=== PATIENT | female | born 1960 | race Asian ===

== ENCOUNTER 2016-06-15 11:58 | Outpatient (CLI) | payer BC, OTHER ==
[~2016-06-15 11:58] MED LIST: CEPH500C20 PO; CRESTOR20 MG PO; ENBREL25 MG SC; FURO40TA93 PO; HYDR200T3 PO; LABETALOL300 MG OR; LEFLUNOMIDE10 MG PO; LISI20TA11 PO; LORTAB 10/5001 EACH PO; NIFE30TA PO; NIFEDIAC CC90 MG OR; WARF10TA5 PO
== END 2016-06-15 19:08 | disposition home or self-care (01) ==
LOC: LABW 11:58
DX: I34.8 Other nonrheumatic mitral valve disorders (principal); I35.8 Other nonrheumatic aortic valve disorders
CPT/HCPCS: 36415; 85610

== ENCOUNTER 2016-06-24 13:25 | Outpatient (CLI) | payer BC, OTHER | END 2016-06-24 14:25 | disposition home or self-care (01) | LOC: LABW 13:25 | DX: I34.8 Other nonrheumatic mitral valve disorders (principal); I35.8 Other nonrheumatic aortic valve disorders | CPT/HCPCS: 36415; 85610 ==

== ENCOUNTER 2016-06-27 15:05 | Outpatient (CLI) | payer BC, OTHER ==
[2016-06-27 15:34] LABS: PLATELET COUNT 230 K/uL (152-353)
== END 2016-06-27 19:17 | disposition home or self-care (01) ==
LOC: LABW 15:05
PROVIDERS: Internal Medicine
DX: M79.1 Myalgia (principal)
CPT/HCPCS: 36415; 80076; 82550; 84443; 85027; 85651

== ENCOUNTER 2016-08-03 09:18 | Outpatient (CLI) | payer BC, OTHER | END 2016-08-03 19:05 | disposition home or self-care (01) | LOC: LABW 09:18 | DX: Z79.01 Long term (current) use of anticoagulants (principal); Z51.81 Encounter for therapeutic drug level monitoring | CPT/HCPCS: 36415; 85610 ==

== ENCOUNTER 2016-08-07 09:59 | Outpatient (CLI) | payer BC, OTHER | END 2016-08-07 20:00 | disposition home or self-care (01) | LOC: LABW 09:59 | DX: Z79.01 Long term (current) use of anticoagulants (principal); Z95.2 Presence of prosthetic heart valve; Z09 Encounter for follow-up examination after completed treatment for conditions other than malignant neoplasm | CPT/HCPCS: 36415; 85610 ==

== ENCOUNTER 2016-08-15 11:13 | Outpatient (CLI) | payer BC, OTHER | END 2016-08-15 13:00 | disposition home or self-care (01) | LOC: LABW 11:13 | DX: Z79.01 Long term (current) use of anticoagulants (principal); Z95.2 Presence of prosthetic heart valve; Z51.81 Encounter for therapeutic drug level monitoring | CPT/HCPCS: 36415; 85610 ==

== ENCOUNTER 2016-09-19 09:49 | Outpatient (CLI) | payer BC, OTHER | END 2016-09-19 12:00 | disposition home or self-care (01) | LOC: LABW 09:49 | PROVIDERS: Internal Medicine Rheumatology | DX: E78.4 Other hyperlipidemia (principal); Z09 Encounter for follow-up examination after completed treatment for conditions other than malignant neoplasm; M06.09 Rheumatoid arthritis without rheumatoid factor, multiple sites | CPT/HCPCS: 36415; 80061; 80076 ==

== ENCOUNTER 2016-10-26 11:53 | Inpatient (IN) | payer BC, OTHER ==
[~2016-10-26] VITALS: Ht 172.7 cm; Wt 85.1 kg
[2016-10-26 12:15] VITALS: BP 197/104; TEMP 97.8
[2016-10-26 13:41] LABS: PLATELET COUNT 206 K/uL (152-353)
[2016-10-26 13:57] LABS: POTASSIUM 3.7 mmol/L (3.6-5.2); SODIUM 142 mmol/L (136-145)
[2016-10-26 19:00] VITALS: BP 172/89; TEMP 98; Ht 172.7 cm; Wt 85.1 kg
--- NOTE | 2016-10-26 19:45 | NUR ---
10/26/16 1800 ADMITTED TO ROOM 1106 ABD PAIN DIFFERENTIAL CHRON'S ENTERTIS ISCHEMIA BOWEL UTI.20 GAUDGE TO LEFT AC INTACT.CC
[2016-10-26 20:00] VITALS: BP 130/67; TEMP 98.7
[2016-10-27] VITALS: BP 139/82; TEMP 98.5
[2016-10-27 04:00] VITALS: BP 152/85; TEMP 98.5
[2016-10-27] MEDS ORDERED: HYDR10TA47 PO (07:43)
[2016-10-27] MEDS ORDERED: CRESTOR20 MG PO (07:47)
[2016-10-27] MEDS ORDERED: WARF10TA5 PO (07:52)
[2016-10-27] MEDS ORDERED: WARF5TAB6 PO (07:57)
[2016-10-27] MEDS ORDERED: KLOR-CON M2020 MEQ OR (07:59)
[2016-10-27 08:00] VITALS: BP 148/84; TEMP 98.7
[2016-10-27] MEDS ORDERED: METO25TA4 OR (08:00)
--- NOTE | 2016-10-27 09:05 | NUR ---
10/26/16 AT 2238DR. KINA CALLED, UPDATED ON PT'S STATUS. NEW ORDER FOR PT, PTT, AND INR EVERY MORNING X 5 DAYS. T.O. R&V DR. CASTANON/JARVIS HERNANDEZ RN.
--- NOTE | 2016-10-27 09:06 | NUR ---
10/26/16 AT 2114DR. LORIE CALLED TO CHECK ON PT'S STATUS. NEW ORDER TO TYPE, CROSS, AND INFUSE 2 UNITS OF FRESH FROZEN PLASMA. T.O. R&V. DR. MELO/JARVIS HERNANDEZ RN.
[2016-10-27 10:42] LABS: PLATELET COUNT 185 K/uL (152-353)
[2016-10-27 11:02] LABS: PARTIAL THROMBOPLASTIN TIME 36.9 SECONDS (24.5-33.6)
[2016-10-27 11:08] LABS: POTASSIUM 3.5 mmol/L (3.6-5.2)
[2016-10-27 12:00] VITALS: BP 160/84; TEMP 98.1
[2016-10-27 16:00] VITALS: BP 173/77; TEMP 98.4
[2016-10-27 20:22] VITALS: BP 174/69; TEMP 98.5
[2016-10-28] VITALS: BP 181/84; TEMP 98.6
[2016-10-28 04:00] VITALS: BP 158/71; TEMP 98.5
[2016-10-28 05:09] LABS: PLATELET COUNT 169 K/uL (152-353)
[2016-10-28 05:23] LABS: POTASSIUM 3.9 mmol/L (3.6-5.2)
[2016-10-28 05:35] LABS: PARTIAL THROMBOPLASTIN TIME 29.3 SECONDS (24.5-33.6)
[2016-10-28 08:00] VITALS: BP 192/86; TEMP 98.3
[2016-10-28 12:00] VITALS: BP 197/87; TEMP 98.5
[2016-10-28 16:00] VITALS: BP 179/85; TEMP 98.4
[2016-10-28 20:00] VITALS: BP 193/90; TEMP 98.2
[2016-10-29] VITALS: BP 199/87; TEMP 97.7
[2016-10-29 04:00] VITALS: BP 186/84; TEMP 98.1
[2016-10-29 06:00] LABS: POTASSIUM 3.5 mmol/L (3.6-5.2); SODIUM 139 mmol/L (136-145)
[2016-10-29 06:09] LABS: PARTIAL THROMBOPLASTIN TIME 26.5 SECONDS (24.5-33.6); PLATELET COUNT 189 K/uL (152-353)
--- NOTE | 2016-10-29 07:55 | NUR ---
RESTING QUIETLY THIS AM, NO COMPLAINTS, IV FLUIDS INFUSING WITHOUT DIFFICULTY. TAKING PO FLUIDS.
[2016-10-29 08:00] VITALS: BP 182/90; TEMP 97.8
[2016-10-29 11:45] VITALS: BP 185/74; TEMP 98.5
--- NOTE | 2016-10-29 16:30 | NUR ---
D/C INSTRUCTIONS GIVEN TO PT. RX ATTACHED. L AC 18G D/C'D CATH TIP INTACT. OR SISTER TO COME TRANSPORT HOME.
== END 2016-10-29 16:45 | disposition home or self-care (01) | DRG 392 ==
LOC: ED 11:53 → MED/SURG 16:54
PROVIDERS: Internal Medicine; ADMIT Specialist
PROC: 30233K1 Transfusion of Nonautologous Frozen Plasma into Peripheral Vein, Percutaneous Approach (ICD-10-PCS; principal; 2016-10-27)
DX: K52.89 Other specified noninfective gastroenteritis and colitis (principal); R79.1 Abnormal coagulation profile; R79.89 Other specified abnormal findings of blood chemistry; Z95.4 Presence of other heart-valve replacement; I10 Essential (primary) hypertension; Z86.73 Personal history of transient ischemic attack (TIA), and cerebral infarction without residual deficits
CPT/HCPCS: 36415; 36430; 80048; 80053; 80307; 81000; 82150; 82272; 82550; 82553; 83605; 83690; 83735; 84100; 84484; 85027; 85610; 85651; 85730; 86039; 86140; 86900; 86901; 87086; 87088; 93005; 96366; 96367; 96374; 96375; 99284; G0479; J0360; J0744; J1170; J1200; J1650; J1885; J2175; J2405; J2930; J3490; P9017; Q9963

== ENCOUNTER 2016-11-13 09:07 | Outpatient (CLI) | payer BC, OTHER ==
[~2016-11-13 09:07] MED LIST changes: +HYDR10TA47 PO; +KLOR-CON M2020 MEQ OR; +METO25TA4 OR; +WARF5TAB6 PO
== END 2016-11-13 19:21 | disposition home or self-care (01) ==
LOC: LABW 09:07
DX: D68.8 Other specified coagulation defects (principal)
CPT/HCPCS: 36415; 85610

== ENCOUNTER 2016-11-30 10:06 | Outpatient (CLI) | payer BC, OTHER | END 2016-11-30 11:10 | disposition home or self-care (01) | LOC: LABW 10:06 | DX: Z79.01 Long term (current) use of anticoagulants (principal); Z95.2 Presence of prosthetic heart valve; Z51.81 Encounter for therapeutic drug level monitoring | CPT/HCPCS: 36415; 85610 ==

== ENCOUNTER 2017-01-11 12:02 | Outpatient (CLI) | payer BC, OTHER | END 2017-01-11 19:25 | disposition home or self-care (01) | LOC: LABW 12:02 | DX: M06.09 Rheumatoid arthritis without rheumatoid factor, multiple sites (principal); Z79.899 Other long term (current) drug therapy; Z51.81 Encounter for therapeutic drug level monitoring; Z79.01 Long term (current) use of anticoagulants; Z95.2 Presence of prosthetic heart valve | CPT/HCPCS: 36415; 82784; 85610; 85651; 86140 ==

== ENCOUNTER 2017-04-12 15:05 | Outpatient (CLI) | payer BC, OTHER | END 2017-04-12 22:41 | disposition home or self-care (01) | LOC: RAD 15:05 | DX: J40 Bronchitis, not specified as acute or chronic (principal) ==

== ENCOUNTER 2017-09-24 09:32 | Outpatient (CLI) | payer BC, OTHER | END 2017-09-24 22:35 | disposition home or self-care (01) | LOC: LABW 09:32 | PROVIDERS: Internal Medicine Cardiovascular Disease | DX: E78.4 Other hyperlipidemia (principal) | CPT/HCPCS: 36415; 80061; 80076 ==

== ENCOUNTER 2017-10-02 11:14 | Outpatient (CLI) | payer BC, OTHER | END 2017-10-02 21:54 | disposition home or self-care (01) | LOC: LABW 11:14 | DX: I34.9 Nonrheumatic mitral valve disorder, unspecified (principal); I35.9 Nonrheumatic aortic valve disorder, unspecified; Z79.01 Long term (current) use of anticoagulants; Z09 Encounter for follow-up examination after completed treatment for conditions other than malignant neoplasm | CPT/HCPCS: 36415; 85610 ==

== ENCOUNTER 2017-10-12 08:47 | Outpatient (CLI) | payer BC, OTHER | END 2017-10-12 19:07 | disposition home or self-care (01) | LOC: LABW 08:47 | DX: I34.8 Other nonrheumatic mitral valve disorders (principal); I35.8 Other nonrheumatic aortic valve disorders; Z79.01 Long term (current) use of anticoagulants; Z51.81 Encounter for therapeutic drug level monitoring | CPT/HCPCS: 36415; 85610 ==

== ENCOUNTER 2017-10-23 10:03 | Outpatient (CLI) | payer BC, OTHER | END 2017-10-23 23:46 | disposition home or self-care (01) | LOC: LABW 10:03 | DX: I34.9 Nonrheumatic mitral valve disorder, unspecified (principal); I35.9 Nonrheumatic aortic valve disorder, unspecified; Z79.01 Long term (current) use of anticoagulants; Z09 Encounter for follow-up examination after completed treatment for conditions other than malignant neoplasm | CPT/HCPCS: 36415; 85610 ==

== ENCOUNTER 2017-11-05 11:17 | Outpatient (CLI) | payer BC, OTHER | END 2017-11-05 22:01 | disposition home or self-care (01) | LOC: LABW 11:17 | DX: I34.8 Other nonrheumatic mitral valve disorders (principal); I35.8 Other nonrheumatic aortic valve disorders; Z79.01 Long term (current) use of anticoagulants; Z51.81 Encounter for therapeutic drug level monitoring | CPT/HCPCS: 36415; 85610 ==

== ENCOUNTER 2017-11-20 11:44 | Outpatient (CLI) | payer BC, OTHER | END 2017-11-20 20:01 | disposition home or self-care (01) | LOC: LABW 11:44 | DX: I34.9 Nonrheumatic mitral valve disorder, unspecified (principal); I35.9 Nonrheumatic aortic valve disorder, unspecified; Z79.01 Long term (current) use of anticoagulants; Z09 Encounter for follow-up examination after completed treatment for conditions other than malignant neoplasm | CPT/HCPCS: 36415; 85610 ==

== ENCOUNTER 2018-01-24 09:29 | Outpatient (CLI) | payer BC, OTHER | END 2018-01-24 20:07 | disposition home or self-care (01) | LOC: LABW 09:29 | DX: I34.9 Nonrheumatic mitral valve disorder, unspecified (principal); I35.9 Nonrheumatic aortic valve disorder, unspecified; Z09 Encounter for follow-up examination after completed treatment for conditions other than malignant neoplasm | CPT/HCPCS: 36415; 85610 ==

== ENCOUNTER 2018-02-19 16:10 | Emergency (ER) | payer BC, OTHER ==
[~2018-02-19] VITALS: Ht 172.7 cm; Wt 81.6 kg
[2018-02-19 17:22] LABS: PLATELET COUNT 187 K/uL (152-353)
[2018-02-19 17:27] LABS: POTASSIUM 3.8 mmol/L (3.6-5.2)
[2018-02-19 18:00] VITALS: TEMP 98.5
[2018-02-19 19:00] VITALS: BP 206/80
== END 2018-02-19 20:10 | disposition home or self-care (01) ==
LOC: ED 16:10
PROVIDERS: Family Medicine
DX: R07.89 Other chest pain (principal); R00.1 Bradycardia, unspecified
CPT/HCPCS: 36415; 80053; 82550; 84484; 85027; 93005; 96374; 96375; 99284; J2175; J2550

== ENCOUNTER 2018-03-07 09:42 | Outpatient (CLI) | payer BC, OTHER | END 2018-03-07 19:22 | disposition home or self-care (01) | LOC: LABW 09:42 | DX: I34.9 Nonrheumatic mitral valve disorder, unspecified (principal); I35.9 Nonrheumatic aortic valve disorder, unspecified; Z79.01 Long term (current) use of anticoagulants | CPT/HCPCS: 36415; 85610 ==

== ENCOUNTER 2018-04-18 15:32 | Outpatient (CLI) | payer BC, OTHER | END 2018-04-18 19:14 | disposition home or self-care (01) | LOC: LABW 15:32 | DX: I34.9 Nonrheumatic mitral valve disorder, unspecified (principal); I35.9 Nonrheumatic aortic valve disorder, unspecified; Z79.01 Long term (current) use of anticoagulants; Z09 Encounter for follow-up examination after completed treatment for conditions other than malignant neoplasm | CPT/HCPCS: 36415; 85610 ==

== ENCOUNTER 2018-05-06 14:13 | Outpatient (CLI) | payer BC, OTHER | END 2018-05-06 19:20 | disposition home or self-care (01) | LOC: LABW 14:13 | DX: I34.9 Nonrheumatic mitral valve disorder, unspecified (principal); I35.9 Nonrheumatic aortic valve disorder, unspecified; Z79.01 Long term (current) use of anticoagulants; Z09 Encounter for follow-up examination after completed treatment for conditions other than malignant neoplasm | CPT/HCPCS: 36415; 85610 ==

== ENCOUNTER 2018-05-31 10:28 | Outpatient (CLI) | payer BC, OTHER | END 2018-05-31 19:40 | disposition home or self-care (01) | LOC: LABW 10:28 | DX: I34.9 Nonrheumatic mitral valve disorder, unspecified (principal); I35.9 Nonrheumatic aortic valve disorder, unspecified; Z79.01 Long term (current) use of anticoagulants; Z09 Encounter for follow-up examination after completed treatment for conditions other than malignant neoplasm | CPT/HCPCS: 36415; 85610 ==

== ENCOUNTER 2018-07-30 10:28 | Outpatient (CLI) | payer BC, OTHER | END 2018-07-30 20:17 | disposition home or self-care (01) | LOC: LABW 10:28 | DX: I34.9 Nonrheumatic mitral valve disorder, unspecified (principal); I35.9 Nonrheumatic aortic valve disorder, unspecified; Z79.01 Long term (current) use of anticoagulants; Z09 Encounter for follow-up examination after completed treatment for conditions other than malignant neoplasm | CPT/HCPCS: 36415; 85610 ==

== ENCOUNTER 2018-08-02 11:08 | Outpatient (CLI) | payer BC, OTHER | END 2018-08-02 22:41 | disposition home or self-care (01) | LOC: LABW 11:08 | DX: I34.9 Nonrheumatic mitral valve disorder, unspecified (principal); I35.9 Nonrheumatic aortic valve disorder, unspecified; Z79.01 Long term (current) use of anticoagulants; Z09 Encounter for follow-up examination after completed treatment for conditions other than malignant neoplasm | CPT/HCPCS: 36415; 85610 ==

== ENCOUNTER 2018-08-09 09:49 | Outpatient (CLI) | payer BC, OTHER | END 2018-08-09 19:59 | disposition home or self-care (01) | LOC: LABW 09:49 | DX: I34.9 Nonrheumatic mitral valve disorder, unspecified (principal); I35.9 Nonrheumatic aortic valve disorder, unspecified; Z79.01 Long term (current) use of anticoagulants; Z09 Encounter for follow-up examination after completed treatment for conditions other than malignant neoplasm | CPT/HCPCS: 36415; 85610 ==

== ENCOUNTER 2018-08-19 10:50 | Outpatient (CLI) | payer BC, OTHER | END 2018-08-19 22:46 | disposition home or self-care (01) | LOC: LABW 10:50 | DX: I34.9 Nonrheumatic mitral valve disorder, unspecified (principal); I35.9 Nonrheumatic aortic valve disorder, unspecified; Z09 Encounter for follow-up examination after completed treatment for conditions other than malignant neoplasm | CPT/HCPCS: 36415; 85610 ==

== ENCOUNTER 2018-08-23 09:26 | Outpatient (CLI) | payer BC, OTHER | END 2018-08-23 19:36 | disposition home or self-care (01) | LOC: LABW 09:26 | DX: I34.9 Nonrheumatic mitral valve disorder, unspecified (principal); I35.9 Nonrheumatic aortic valve disorder, unspecified; Z79.01 Long term (current) use of anticoagulants; Z09 Encounter for follow-up examination after completed treatment for conditions other than malignant neoplasm | CPT/HCPCS: 36415; 85610 ==

== ENCOUNTER 2018-09-03 12:44 | Outpatient (CLI) | payer BC, OTHER | END 2018-09-03 20:32 | disposition home or self-care (01) | LOC: LABW 12:44 | DX: I34.9 Nonrheumatic mitral valve disorder, unspecified (principal); I35.9 Nonrheumatic aortic valve disorder, unspecified; Z79.01 Long term (current) use of anticoagulants; Z09 Encounter for follow-up examination after completed treatment for conditions other than malignant neoplasm | CPT/HCPCS: 36415; 85610 ==

== ENCOUNTER 2018-09-19 09:56 | Outpatient (CLI) | payer BC, OTHER | END 2018-09-19 19:42 | disposition home or self-care (01) | LOC: LABW 09:56 | DX: I34.9 Nonrheumatic mitral valve disorder, unspecified (principal); I35.9 Nonrheumatic aortic valve disorder, unspecified; Z79.01 Long term (current) use of anticoagulants; Z09 Encounter for follow-up examination after completed treatment for conditions other than malignant neoplasm | CPT/HCPCS: 36415; 85610 ==

== ENCOUNTER 2018-10-03 09:28 | Outpatient (CLI) | payer BC, OTHER | END 2018-10-03 19:51 | disposition home or self-care (01) | LOC: LABW 09:28 | DX: I34.9 Nonrheumatic mitral valve disorder, unspecified (principal); I35.9 Nonrheumatic aortic valve disorder, unspecified; Z09 Encounter for follow-up examination after completed treatment for conditions other than malignant neoplasm | CPT/HCPCS: 36415; 85610 ==

== ENCOUNTER 2018-10-18 09:29 | Outpatient (CLI) | payer BC, OTHER | END 2018-10-18 23:37 | disposition home or self-care (01) | LOC: LABW 09:29 | DX: Z09 Encounter for follow-up examination after completed treatment for conditions other than malignant neoplasm (principal); I34.9 Nonrheumatic mitral valve disorder, unspecified; I35.9 Nonrheumatic aortic valve disorder, unspecified; Z79.01 Long term (current) use of anticoagulants | CPT/HCPCS: 36415; 85610 ==

== ENCOUNTER 2018-11-01 09:51 | Outpatient (CLI) | payer BC, OTHER | END 2018-11-01 19:09 | disposition home or self-care (01) | LOC: LABW 09:51 | DX: I34.9 Nonrheumatic mitral valve disorder, unspecified (principal); I35.9 Nonrheumatic aortic valve disorder, unspecified; Z79.01 Long term (current) use of anticoagulants; Z09 Encounter for follow-up examination after completed treatment for conditions other than malignant neoplasm | CPT/HCPCS: 36415; 85610 ==

== ENCOUNTER 2018-11-27 09:23 | Outpatient (CLI) | payer BC, OTHER | END 2018-11-27 23:59 | LOC: LABW 09:23 | DX: I35.8 Other nonrheumatic aortic valve disorders (principal); I34.8 Other nonrheumatic mitral valve disorders; Z79.01 Long term (current) use of anticoagulants; Z09 Encounter for follow-up examination after completed treatment for conditions other than malignant neoplasm | CPT/HCPCS: 36415; 85610 ==

== ENCOUNTER 2018-12-20 09:18 | Outpatient (CLI) | payer OTHER, BC | END 2018-12-20 23:07 | disposition home or self-care (01) | LOC: LABW 09:18 | DX: I35.8 Other nonrheumatic aortic valve disorders (principal); Z79.01 Long term (current) use of anticoagulants | CPT/HCPCS: 36415; 85610 ==

== ENCOUNTER 2019-01-13 10:45 | Outpatient (CLI) | payer OTHER, BC | END 2019-01-13 22:05 | disposition home or self-care (01) | LOC: LABW 10:45 | DX: I35.8 Other nonrheumatic aortic valve disorders (principal); Z79.01 Long term (current) use of anticoagulants | CPT/HCPCS: 36415; 85610 ==

== ENCOUNTER 2019-02-18 13:05 | Outpatient (CLI) | payer OTHER, BC | END 2019-02-18 19:36 | disposition home or self-care (01) | LOC: LABW 13:05 | DX: Z79.01 Long term (current) use of anticoagulants (principal); I35.8 Other nonrheumatic aortic valve disorders | CPT/HCPCS: 36415; 85610 ==

== ENCOUNTER 2019-02-28 13:41 | Outpatient (CLI) | payer OTHER, BC | END 2019-02-28 19:28 | disposition home or self-care (01) | LOC: LABW 13:41 | DX: I35.8 Other nonrheumatic aortic valve disorders (principal); Z79.01 Long term (current) use of anticoagulants | CPT/HCPCS: 36415; 85610 ==

== ENCOUNTER 2019-03-21 10:10 | Outpatient (CLI) | payer OTHER, BC | END 2019-03-21 20:15 | disposition home or self-care (01) | LOC: LABW 10:10 | DX: I35.8 Other nonrheumatic aortic valve disorders (principal); Z79.01 Long term (current) use of anticoagulants | CPT/HCPCS: 36415; 85610 ==

== ENCOUNTER 2019-03-26 13:14 | Outpatient (CLI) | payer OTHER, BC | END 2019-03-26 19:36 | disposition home or self-care (01) | LOC: RAD 13:14 | DX: M50.120 Mid-cervical disc disorder, unspecified level (principal) ==

== ENCOUNTER 2019-04-12 12:48 | Emergency (ER) | payer OTHER, BC ==
[~2019-04-12] VITALS: Ht 172.7 cm; Wt 83.9 kg
[2019-04-12 13:10] VITALS: TEMP 98.7
[2019-04-12 13:17] LABS: PLATELET COUNT 227 K/uL (152-353)
[2019-04-12 13:24] LABS: POTASSIUM 3.6 mmol/L (3.6-5.2)
[2019-04-12 15:00] VITALS: BP 166/94
== END 2019-04-12 15:15 | disposition short-term general hospital (02) ==
LOC: ED 12:48
PROVIDERS: Emergency Medicine
DX: I21.4 Non-ST elevation (NSTEMI) myocardial infarction (principal)
CPT/HCPCS: 80053; 82550; 82553; 84484; 85027; 85379; 85610; 93005; 96372; 96374; 99285; J1644; J2270

== ENCOUNTER 2019-04-18 10:46 | Outpatient (CLI) | payer OTHER, BC | END 2019-04-18 16:00 | disposition home or self-care (01) | LOC: LABW 10:46 | DX: I35.8 Other nonrheumatic aortic valve disorders (principal); Z79.01 Long term (current) use of anticoagulants | CPT/HCPCS: 36415; 85610 ==

== ENCOUNTER 2019-04-24 14:07 | Outpatient (CLI) | payer OTHER, BC | END 2019-04-24 20:21 | disposition home or self-care (01) | LOC: LABW 14:07 | DX: I35.8 Other nonrheumatic aortic valve disorders (principal); Z79.01 Long term (current) use of anticoagulants | CPT/HCPCS: 36415; 85610 ==

== ENCOUNTER 2019-05-05 10:08 | Outpatient (CLI) | payer OTHER, BC | END 2019-05-05 19:31 | disposition home or self-care (01) | LOC: LABW 10:08 | PROVIDERS: Internal Medicine Cardiovascular Disease | DX: E78.49 Other hyperlipidemia (principal); I25.119 Atherosclerotic heart disease of native coronary artery with unspecified angina pectoris; Z95.2 Presence of prosthetic heart valve; I35.8 Other nonrheumatic aortic valve disorders; Z79.01 Long term (current) use of anticoagulants | CPT/HCPCS: 36415; 80061; 80076; 85610 ==

== ENCOUNTER 2019-05-26 10:13 | Emergency (ER) | payer OTHER, BC ==
[~2019-05-26] VITALS: Ht 172.7 cm; Wt 83.9 kg
[2019-05-26 10:13] VITALS: BP 176/84; TEMP 98.4
[2019-05-26 10:42] LABS: PLATELET COUNT 209 K/uL (152-353)
[2019-05-26 10:48] LABS: POTASSIUM 3.1 mmol/L (3.6-5.2)
[2019-05-26 11:05] LABS: PARTIAL THROMBOPLASTIN TIME 29.3 SECONDS (24.5-33.6)
[2019-05-26] MEDS ORDERED: ROSUVASTATIN CA40 MG PO (11:20)
[2019-05-26] MEDS ORDERED: NIFE60TA5 PO (11:21)
[2019-05-26] MEDS ORDERED: ZESTRIL40 MG PO (11:23)
== END 2019-05-26 19:17 | disposition short-term general hospital (02) ==
LOC: ED 10:13
PROVIDERS: Student in an Organized Health Care Education/Training Program
DX: I21.4 Non-ST elevation (NSTEMI) myocardial infarction (principal)
CPT/HCPCS: 36415; 80048; 83690; 83735; 83880; 84484; 85027; 85610; 85730; 93005; 96374; 96375; 96376; 99284; J2270; J2405

== ENCOUNTER 2019-06-02 11:09 | Outpatient (CLI) | payer OTHER, BC ==
[~2019-06-02 11:09] MED LIST changes: +NIFE60TA5 PO; +ROSUVASTATIN CA40 MG PO; +ZESTRIL40 MG PO
== END 2019-06-02 19:53 | disposition home or self-care (01) ==
LOC: LABW 11:09
DX: I35.8 Other nonrheumatic aortic valve disorders (principal); Z79.01 Long term (current) use of anticoagulants
CPT/HCPCS: 85610

== ENCOUNTER 2019-06-06 11:43 | Outpatient (CLI) | payer OTHER, BC | END 2019-06-06 19:11 | disposition home or self-care (01) | LOC: LABW 11:43 | DX: Z79.01 Long term (current) use of anticoagulants (principal); I35.8 Other nonrheumatic aortic valve disorders | CPT/HCPCS: 36415; 85610 ==

== ENCOUNTER 2019-06-09 10:10 | Outpatient (CLI) | payer OTHER, BC | END 2019-06-09 19:13 | disposition home or self-care (01) | LOC: LABW 10:10 | DX: I35.8 Other nonrheumatic aortic valve disorders (principal); Z79.01 Long term (current) use of anticoagulants | CPT/HCPCS: 36415; 85610 ==

== ENCOUNTER 2019-06-13 09:00 | Outpatient (CLI) | payer OTHER, BC | END 2019-06-13 22:45 | disposition home or self-care (01) | LOC: LABW 09:00 | DX: Z79.01 Long term (current) use of anticoagulants (principal); I35.8 Other nonrheumatic aortic valve disorders | CPT/HCPCS: 36415; 85610 ==

== ENCOUNTER 2019-06-19 10:48 | Outpatient (CLI) | payer OTHER, BC | END 2019-06-19 22:45 | disposition home or self-care (01) | LOC: LABW 10:48 | DX: Z79.01 Long term (current) use of anticoagulants (principal); I35.8 Other nonrheumatic aortic valve disorders | CPT/HCPCS: 36415; 85610 ==

== ENCOUNTER 2019-06-23 09:37 | Outpatient (CLI) | payer OTHER, BC | END 2019-06-23 23:05 | disposition home or self-care (01) | LOC: LABW 09:37 | DX: I35.8 Other nonrheumatic aortic valve disorders (principal); Z79.01 Long term (current) use of anticoagulants | CPT/HCPCS: 36415; 85610 ==

== ENCOUNTER 2019-06-30 12:09 | Outpatient (CLI) | payer OTHER, BC | END 2019-06-30 20:49 | disposition home or self-care (01) | LOC: LABW 12:09 | DX: I35.8 Other nonrheumatic aortic valve disorders (principal); Z79.01 Long term (current) use of anticoagulants | CPT/HCPCS: 36415; 85610 ==

== ENCOUNTER 2019-07-14 10:04 | Outpatient (CLI) | payer OTHER, BC | END 2019-07-14 19:15 | disposition home or self-care (01) | LOC: LABW 10:04 | DX: I35.8 Other nonrheumatic aortic valve disorders (principal); Z79.01 Long term (current) use of anticoagulants | CPT/HCPCS: 36415; 85610 ==

== ENCOUNTER 2019-07-28 09:26 | Outpatient (CLI) | payer OTHER, BC | END 2019-07-28 20:08 | disposition home or self-care (01) | LOC: LABW 09:26 | DX: I35.8 Other nonrheumatic aortic valve disorders (principal); Z79.01 Long term (current) use of anticoagulants | CPT/HCPCS: 36415; 85610 ==

== ENCOUNTER 2019-10-19 11:44 | Emergency (ER) | payer OTHER, BC ==
[2019-10-19] MEDS ORDERED: METO25TA2 PO (12:27)
[2019-10-19] MEDS ORDERED: FURO40TA93 PO (12:28)
[2019-10-19] MEDS ORDERED: POT CHLORIDE10 MEQ PO (12:28)
[2019-10-19] MEDS ORDERED: NITR0.4S2 SL (12:29)
[2019-10-19] MEDS ORDERED: ISOS30TA17 PO (12:30)
[2019-10-19] MEDS ORDERED: ASPIRIN 81 LOW81 MG PO (12:31)
== END 2019-11-29 ==
LOC: ED 11:44
DX: R42 Dizziness and giddiness (principal)
CPT/HCPCS: 99281; 99284

== ENCOUNTER 2019-10-19 11:51 | Emergency (ER) | payer OTHER, BC ==
[~2019-10-19] VITALS: Ht 172.7 cm; Wt 83.9 kg
[2019-10-19] MEDS ORDERED: METO25TA2 PO (12:27)
[2019-10-19] MEDS ORDERED: POT CHLORIDE10 MEQ PO (12:28)
[2019-10-19] MEDS ORDERED: FURO40TA93 PO (12:28)
[2019-10-19] MEDS ORDERED: NITR0.4S2 SL (12:29)
[2019-10-19] MEDS ORDERED: ISOS30TA17 PO (12:30)
[2019-10-19] MEDS ORDERED: ASPIRIN 81 LOW81 MG PO (12:31)
[2019-10-19 13:03] LABS: PLATELET COUNT 197 K/uL (152-353)
[2019-10-19 15:48] VITALS: BP 154/84; TEMP 98.5
== END 2019-10-19 15:49 | disposition home or self-care (01) ==
LOC: ED 11:51
PROVIDERS: Emergency Medicine
DX: G44.89 Other headache syndrome (principal); I10 Essential (primary) hypertension
CPT/HCPCS: 36415; 80053; 81000; 82550; 82553; 84484; 85027; 93005; 96365; 96375; 99284; Q9963

== ENCOUNTER 2019-10-21 09:14 | Outpatient (CLI) | payer OTHER, BC ==
[~2019-10-21 09:14] MED LIST changes: +ASPIRIN 81 LOW81 MG PO; +ISOS30TA17 PO; +METO25TA2 PO; +NITR0.4S2 SL; +POT CHLORIDE10 MEQ PO
== END 2019-10-21 20:35 | disposition home or self-care (01) ==
LOC: LABW 09:14
DX: D68.8 Other specified coagulation defects (principal)
CPT/HCPCS: 36415; 85610

== ENCOUNTER 2019-11-06 13:14 | Outpatient (CLI) | payer OTHER, BC | END 2019-11-06 19:33 | disposition home or self-care (01) | LOC: MRI 13:14 | DX: G45.8 Other transient cerebral ischemic attacks and related syndromes (principal) | CPT/HCPCS: A9576 ==

== ENCOUNTER 2019-11-28 12:41 | Emergency (ER) | payer OTHER, BC ==
[~2019-11-28] VITALS: Ht 172.7 cm; Wt 89.8 kg
[2019-11-28 13:08] VITALS: BP 118/74; TEMP 98.7
== END 2019-11-28 13:44 | disposition home or self-care (01) ==
LOC: ED 12:41
DX: R42 Dizziness and giddiness (principal)
CPT/HCPCS: 99281

== ENCOUNTER 2019-11-29 10:18 | Emergency (ER) | payer OTHER, BC ==
[~2019-11-29] VITALS: Ht 172.7 cm; Wt 89.8 kg
[2019-11-29 11:08] LABS: PLATELET COUNT 182 K/uL (152-353)
[2019-11-29 11:15] LABS: POTASSIUM 3.6 mmol/L (3.6-5.2)
[2019-11-29 12:33] VITALS: BP 130/80; TEMP 97.6
== END 2019-11-29 12:35 | disposition home or self-care (01) ==
LOC: ED 10:30
PROVIDERS: Emergency Medicine
DX: R42 Dizziness and giddiness (principal); Z79.899 Other long term (current) drug therapy; Z51.81 Encounter for therapeutic drug level monitoring
CPT/HCPCS: 80053; 81000; 85027; 87086; 87088; 93005; 99283

== ENCOUNTER 2020-01-07 14:15 | Outpatient (CLI) | payer OTHER, BC | END 2020-01-07 19:10 | disposition home or self-care (01) | LOC: LABW 14:15 | DX: I35.8 Other nonrheumatic aortic valve disorders (principal); Z79.01 Long term (current) use of anticoagulants | CPT/HCPCS: 36415; 85610 ==

== ENCOUNTER 2020-01-12 13:32 | Outpatient (CLI) | payer OTHER, BC | END 2020-01-12 23:47 | disposition home or self-care (01) | LOC: LABW 13:32 | DX: I35.8 Other nonrheumatic aortic valve disorders (principal); Z79.01 Long term (current) use of anticoagulants | CPT/HCPCS: 36415; 85610 ==

== ENCOUNTER 2020-02-04 10:53 | Emergency (ER) | payer OTHER, BC ==
[~2020-02-04] VITALS: Ht 172.7 cm; Wt 88.5 kg
[2020-02-04 11:24] LABS: PLATELET COUNT 203 K/uL (152-353)
[2020-02-04 11:28] LABS: POTASSIUM 3.5 mmol/L (3.6-5.2); SODIUM 141 mmol/L (136-145)
[2020-02-04 11:36] LABS: PARTIAL THROMBOPLASTIN TIME 29.5 SECONDS (24.5-33.6)
[2020-02-04 12:30] VITALS: BP 122/77; TEMP 98.7
== END 2020-02-04 12:30 | disposition home or self-care (01) ==
LOC: ED 10:53
PROVIDERS: Family Medicine
DX: M79.18 Myalgia, other site (principal); M79.602 Pain in left arm
CPT/HCPCS: 80053; 82550; 82553; 83880; 84484; 85027; 85379; 85610; 85730; 93005; 96372; 99284; J1885

== ENCOUNTER 2020-03-24 10:11 | Outpatient (CLI) | payer OTHER, BC | END 2020-03-24 22:11 | disposition home or self-care (01) | LOC: LABW 10:11 | PROVIDERS: ATTEND Internal Medicine Cardiovascular Disease | DX: E78.49 Other hyperlipidemia (principal); I25.119 Atherosclerotic heart disease of native coronary artery with unspecified angina pectoris; Z09 Encounter for follow-up examination after completed treatment for conditions other than malignant neoplasm; M25.512 Pain in left shoulder | CPT/HCPCS: 36415; 80061; 80076 ==

== ENCOUNTER 2020-04-23 10:27 | Outpatient (CLI) | payer OTHER, BC | END 2020-04-23 23:59 | disposition home or self-care (01) | LOC: MRI 10:27 | PROVIDERS: ATTEND Physical Medicine & Rehabilitation | DX: I35.8 Other nonrheumatic aortic valve disorders (principal); Z79.01 Long term (current) use of anticoagulants; M54.5 Low back pain | CPT/HCPCS: 36415; 85610 ==

== ENCOUNTER 2020-10-15 09:01 | Outpatient (CLI) | payer BC, OTHER ==
[2020-10-15 09:41] LABS: PLATELET COUNT 210 K/uL (152-353)
[2020-10-15 10:25] LABS: POTASSIUM 3.7 mmol/L (3.6-5.2)
== END 2020-10-15 21:53 | disposition home or self-care (01) ==
LOC: LABW 09:01
PROVIDERS: ATTEND Internal Medicine
DX: I42.8 Other cardiomyopathies (principal); I10 Essential (primary) hypertension; I25.10 Atherosclerotic heart disease of native coronary artery without angina pectoris; M06.8A Other specified rheumatoid arthritis, other specified site
CPT/HCPCS: 36415; 80053; 81000; 84439; 84443; 85027; 85652; 86430; 86431

== ENCOUNTER 2020-10-19 10:31 | Outpatient (CLI) | payer OTHER, BC | END 2020-10-19 21:55 | disposition home or self-care (01) | LOC: RESP 10:31 | PROVIDERS: ATTEND Specialist | DX: G58.7 Mononeuritis multiplex (principal) | CPT/HCPCS: 95885; 95910 ==

== ENCOUNTER 2021-01-15 00:29 | Observation (INO) | payer BC, OTHER ==
[~2021-01-15] VITALS: Ht 172.7 cm; Wt 92.8 kg
[2021-01-15] VITALS (9 sets, daily range): BP systolic 108–137; BP diastolic 70–86; TEMP 97.5–98.2; Ht 172.7 cm; Wt 92.8 kg
[2021-01-15 01:12] LABS: POTASSIUM 3.3 mmol/L (3.6-5.2); SODIUM 139 mmol/L (136-145)
[2021-01-15 01:19] LABS: PLATELET COUNT 193 K/uL (152-353)
[2021-01-15 01:35] LABS: PARTIAL THROMBOPLASTIN TIME 39.5 SECONDS (24.5-33.6)
[2021-01-15] MEDS ORDERED: NIFE60TA5 PO (04:47)
[2021-01-15] MEDS ORDERED: METO25TA2 PO (04:48)
[2021-01-15] MEDS ORDERED: PRINIVIL10 MG PO (04:49)
[2021-01-15] MEDS ORDERED: POTASSIUM CIT PO (04:50)
[2021-01-15] MEDS ORDERED: MELATONIN5 M4 PO (04:53)
[2021-01-15] MEDS ORDERED: ASPIRIN ADULT L81 M1 PO (04:54)
[2021-01-15] MEDS ORDERED: FURO40TA93 PO (04:55)
[2021-01-15] MEDS ORDERED: CRESTOR20 MG PO (04:56)
[2021-01-15] MEDS ORDERED: WARF5TAB6 PO ×2 (16:12→16:13)
[2021-01-16 00:20] VITALS: BP 133/60; TEMP 97.7
[2021-01-16 04:00] VITALS: BP 114/65; TEMP 97.7
[2021-01-16 06:35] LABS: PLATELET COUNT 194 K/uL (152-353)
[2021-01-16 06:48] LABS: POTASSIUM 3.7 mmol/L (3.6-5.2)
[2021-01-16 08:00] VITALS: BP 96/70; TEMP 97.5
[2021-01-16 12:00] VITALS: BP 110/69; TEMP 97.6
[2021-01-16 16:00] VITALS: BP 118/70; TEMP 98.4
== END 2021-01-16 19:50 | disposition home or self-care (01) ==
LOC: ED 00:29 → MED/SURG 01:51
PROVIDERS: ADMIT Hospitalist; ATTEND Internal Medicine Endocrinology, Diabetes & Metabolism
DX: R07.89 Other chest pain (principal); I25.10 Atherosclerotic heart disease of native coronary artery without angina pectoris; I11.0 Hypertensive heart disease with heart failure; I50.9 Heart failure, unspecified; E78.49 Other hyperlipidemia; K21.9 Gastro-esophageal reflux disease without esophagitis; E66.8 Other obesity; Z68.30 Body mass index [BMI] 30.0-30.9, adult
CPT/HCPCS: 36415; 80053; 82550; 82553; 83880; 84484; 85027; 85610; 85730; 87635; 93005; 96372; 96374; 96375; 99220; 99284; G0378; J1650; J1885; J1940; J2270; J2405; U0003

== ENCOUNTER 2021-02-22 08:53 | Outpatient (CLI) | payer OTHER, BC ==
[~2021-02-22 08:53] MED LIST changes: +ASPIRIN ADULT L81 M1 PO; +MELATONIN5 M4 PO; +POTASSIUM CIT PO; +PRINIVIL10 MG PO
== END 2021-02-22 20:20 | disposition home or self-care (01) ==
LOC: LABW 08:53 → CT 09:00 → LABW 20:20
PROVIDERS: ATTEND Internal Medicine Cardiovascular Disease
DX: M54.2 Cervicalgia (principal); E78.5 Hyperlipidemia, unspecified; I25.119 Atherosclerotic heart disease of native coronary artery with unspecified angina pectoris; Z09 Encounter for follow-up examination after completed treatment for conditions other than malignant neoplasm
CPT/HCPCS: 36415; 80061; 80076

== ENCOUNTER 2021-03-23 10:15 | Outpatient (CLI) | payer OTHER, BC | END 2021-03-23 20:19 | disposition home or self-care (01) | LOC: LABW 10:15 | PROVIDERS: ATTEND Specialist | DX: G58.7 Mononeuritis multiplex (principal); M06.8A Other specified rheumatoid arthritis, other specified site | CPT/HCPCS: 36415; 82607; 85652; 86200; 86225 ==

== ENCOUNTER 2021-06-14 09:32 | Outpatient (CLI) | payer OTHER, BC | END 2021-06-14 18:56 | disposition home or self-care (01) | LOC: LABW 09:32 | PROVIDERS: ATTEND Internal Medicine Cardiovascular Disease | DX: Z79.01 Long term (current) use of anticoagulants (principal); I35.8 Other nonrheumatic aortic valve disorders | CPT/HCPCS: 36415; 85610 ==

== ENCOUNTER 2021-06-14 09:50 | Emergency (ER) | payer OTHER, BC ==
[~2021-06-14] VITALS: Ht 172.7 cm; Wt 92.5 kg
[2021-06-14 11:09] LABS: PLATELET COUNT 202 K/uL (152-353)
[2021-06-14 11:16] LABS: POTASSIUM 3.9 mmol/L (3.6-5.2)
[2021-06-14 12:10] VITALS: BP 124/73; TEMP 97.2
== END 2021-06-14 12:10 | disposition home or self-care (01) ==
LOC: ED 09:50
PROVIDERS: Hospitalist
DX: M25.551 Pain in right hip (principal); M70.71 Other bursitis of hip, right hip; M16.11 Unilateral primary osteoarthritis, right hip; Y93.9 Activity, unspecified
CPT/HCPCS: 80048; 85027; 85610; 85730; 96372; 99283; J1885

== ENCOUNTER 2021-09-20 08:00 | Outpatient (CLI) | payer OTHER | END 2021-09-20 18:56 | disposition home or self-care (01) | LOC: LABW 08:00 | PROVIDERS: ATTEND Internal Medicine Cardiovascular Disease | DX: E78.49 Other hyperlipidemia (principal); I25.119 Atherosclerotic heart disease of native coronary artery with unspecified angina pectoris; Z09 Encounter for follow-up examination after completed treatment for conditions other than malignant neoplasm | CPT/HCPCS: 36415; 80061; 80076 ==

== ENCOUNTER 2021-10-17 08:55 | Outpatient (CLI) | payer OTHER | END 2021-10-17 18:59 | disposition home or self-care (01) | LOC: CT 08:55 | PROVIDERS: ATTEND Internal Medicine | DX: R10.32 Left lower quadrant pain (principal) | CPT/HCPCS: 36415; 82565; 84520; Q9963 ==

== ENCOUNTER 2021-11-01 01:07 | Emergency (ER) | payer OTHER ==
[~2021-11-01] VITALS: Ht 172.7 cm; Wt 85.7 kg
[2021-11-01 01:30] VITALS: TEMP 98.8
[2021-11-01 02:49] LABS: PLATELET COUNT 184 K/uL (152-353)
[2021-11-01 04:13] VITALS: BP 133/76
== END 2021-11-01 04:13 | disposition home or self-care (01) ==
LOC: ED 01:07
PROVIDERS: Emergency Medicine Emergency Medical Services
DX: B34.9 Viral infection, unspecified (principal); J20.9 Acute bronchitis, unspecified; Z20.822 Contact with and (suspected) exposure to COVID-19
CPT/HCPCS: 36415; 81002; 81015; 85027; 87502; 87635; 94664; 96360; 96365; 96375; 96376; 99284; J0696; J2270; J2405; U0003

== ENCOUNTER 2022-03-23 13:02 | Outpatient (CLI) | payer OTHER | END 2022-03-23 19:05 | disposition home or self-care (01) | LOC: MRI 13:02 | PROVIDERS: ATTEND Otolaryngology | DX: E78.49 Other hyperlipidemia (principal); I25.119 Atherosclerotic heart disease of native coronary artery with unspecified angina pectoris; Z79.899 Other long term (current) drug therapy; I10 Essential (primary) hypertension; H90.42 Sensorineural hearing loss, unilateral, left ear, with unrestricted hearing on the contralateral side | CPT/HCPCS: 36415; 80061; 80076; 82565; 84520; A9576 ==

== ENCOUNTER 2022-07-12 23:22 | Emergency (ER) | payer OTHER ==
[~2022-07-12] VITALS: Ht 172.7 cm; Wt 89.4 kg
[2022-07-12 23:47] LABS: PLATELET COUNT 196 K/uL (152-353)
[2022-07-12 23:57] LABS: POTASSIUM 2.8 mmol/L (3.6-5.2)
[2022-07-13 00:31] LABS: PARTIAL THROMBOPLASTIN TIME 35.7 SECONDS (24.5-33.6)
[2022-07-13 01:00] VITALS: BP 135/66; TEMP 98.2
== END 2022-07-13 01:11 | disposition short-term general hospital (02) ==
LOC: ED 23:22
PROVIDERS: Internal Medicine
DX: I21.4 Non-ST elevation (NSTEMI) myocardial infarction (principal); I10 Essential (primary) hypertension
CPT/HCPCS: 80053; 84484; 85027; 85610; 85730; 93005; 96374; 96375; 99284; J2405

== ENCOUNTER 2022-08-14 08:28 | Outpatient (CLI) | payer OTHER | END 2022-08-14 18:59 | disposition home or self-care (01) | LOC: LABW 08:28 | PROVIDERS: ATTEND Internal Medicine Cardiovascular Disease | DX: I48.91 Unspecified atrial fibrillation (principal); D68.8 Other specified coagulation defects | CPT/HCPCS: 36415; 85610 ==

== ENCOUNTER 2022-08-16 11:43 | Outpatient (CLI) | payer OTHER | END 2022-08-16 18:59 | disposition home or self-care (01) | LOC: US 11:43 | PROVIDERS: ATTEND Internal Medicine | DX: L03.115 Cellulitis of right lower limb (principal) ==

== ENCOUNTER 2022-09-03 19:25 | Observation (INO) | payer OTHER ==
[~2022-09-03] VITALS: Ht 172.7 cm; Wt 92.1 kg
[~2022-09-03 19:25] MED LIST changes: +KLOR-CON M1010 MEQ PO; +LISI10TA11 PO; -LISI20TA11 PO; -POT CHLORIDE10 MEQ PO
[2022-09-03 19:31] VITALS: BP 119/69; TEMP 99
[2022-09-03 21:19] LABS: PLATELET COUNT 239 K/uL (152-353)
[2022-09-03 21:27] LABS: POTASSIUM 3.4 mmol/L (3.6-5.2)
[2022-09-03 21:37] LABS: PARTIAL THROMBOPLASTIN TIME 41.7 SECONDS (23.9-36.7)
[2022-09-03 23:12] VITALS: BP 138/74; TEMP 98.8; Ht 172.7 cm; Wt 92.1 kg
[2022-09-04] VITALS: BP 117/51; TEMP 98.4
[2022-09-04 03:37] VITALS: BP 128/76; TEMP 98.5
[2022-09-04 05:31] LABS: PLATELET COUNT 219 K/uL (152-353)
[2022-09-04 05:36] LABS: POTASSIUM 3.4 mmol/L (3.6-5.2)
[2022-09-04] MEDS ORDERED: GABA100C2 PO (07:58)
[2022-09-04 08:07] VITALS: BP 127/72; TEMP 98.2
[2022-09-04 11:59] VITALS: BP 130/73; TEMP 98.6
[2022-09-04 15:52] VITALS: BP 128/68; TEMP 98.4
[2022-09-05] VITALS: BP 142/71; TEMP 98.8
[2022-09-05 04:00] VITALS: BP 130/65; TEMP 98.5
[2022-09-05 08:00] VITALS: BP 128/68; TEMP 98.6
[2022-09-05] MEDS ORDERED: CEFD300C2 PO (11:16)
== END 2022-09-05 12:05 | disposition home or self-care (01) ==
LOC: ED 19:25 → MED/SURG 20:58
PROVIDERS: ADMIT Emergency Medicine; ATTEND Internal Medicine
DX: L03.115 Cellulitis of right lower limb (principal); I10 Essential (primary) hypertension; Z95.4 Presence of other heart-valve replacement; Z79.01 Long term (current) use of anticoagulants; I25.10 Atherosclerotic heart disease of native coronary artery without angina pectoris; Z87.891 Personal history of nicotine dependence
CPT/HCPCS: 36415; 80053; 84484; 85027; 85379; 85610; 85730; 87040; 93005; 96365; 96372; 99221; 99284; G0378; J1650; J3370

== ENCOUNTER 2022-09-07 13:48 | Outpatient (CLI) | payer OTHER ==
[~2022-09-07 13:48] MED LIST changes: +CEFD300C2 PO; +GABA100C2 PO
== END 2022-09-07 19:42 | disposition home or self-care (01) ==
LOC: LABW 13:48
PROVIDERS: ATTEND Internal Medicine Cardiovascular Disease
DX: D68.8 Other specified coagulation defects (principal)
CPT/HCPCS: 36415; 85610

== ENCOUNTER 2023-05-07 11:08 | Outpatient (CLI) | payer OTHER | END 2023-05-07 19:41 | disposition home or self-care (01) | LOC: LABW 11:08 | PROVIDERS: ATTEND Internal Medicine | DX: D68.8 Other specified coagulation defects (principal) | CPT/HCPCS: 85610 ==